=== PATIENT | female | born 1965 | race Caucasian/White ===

== ENCOUNTER 2023-12-12 12:43 | Outpatient (CLI) | payer OTHER | END 2023-12-12 12:44 | disposition home or self-care (01) | LOC: SCSMRI 12:43 | PROVIDERS: ATTEND Psychiatry & Neurology Neurology | DX: R51.9 Headache, unspecified (principal) | CPT/HCPCS: 70553 ==

== ENCOUNTER 2025-10-27 11:40 | Outpatient (CLI) | payer OTHER | END 2025-10-27 11:41 | disposition home or self-care (01) | LOC: BICRAD 11:40 | PROVIDERS: ATTEND Internal Medicine | DX: Z02.71 Encounter for disability determination (principal); M47.816 Spondylosis without myelopathy or radiculopathy, lumbar region | CPT/HCPCS: 72100 ==